=== PATIENT | male | born 1970 | race Caucasian/White ===

== ENCOUNTER 2020-04-07 11:26 | Outpatient (CLI) | payer OTHER ==
[2020-04-07] MEDS ORDERED: Morphine 2 MG/ML VIAL ONE (13:18)
--- NOTE | 2020-04-07 15:47 | NM ---
NUCLEAR MEDICINE HEPATOBILIARY SCAN: DATE: 04/07/2020 HISTORY: 49-year-old male with localized upper abdominal pain. Unable to contact referring provider despite several attempts. COMPARISON: There are no prior imaging studies of any modality of any body part available for review on synapse. TECHNIQUE: Technetium 99m-mebrofenin dose: 5.1 mCi. Morphine sulfate IV dose: 2 mg. Tc 99- mebrofenin injected IV. Dynamic anterior scintigraphy of abdomen for one hour. Morphine IV pus h injected. Additional dynamic anterior scintigraphy of abdomen. FINDINGS: There is uptake and washout of activity at the liver. The common hepatic duct and common bile duct ar e seen rapidly. Bowel activity is visualized by 240 seconds. The gallbladder does not fill with mebrofenin and. After morphine injection, it still does not fill. This was an outpatient. The nuclear reactor operator stated that the patient was not acutely ill . He was sent home, with instructions to contact his provider as soon as possible. IMPRESSION: Nonvisualization of gallbladder. This can be seen with acute cholecystitis, but patient reportedly wa s not in acute distress. Other possibility is status post cholecystectomy and less likely chronic cholecystitis. Recommend clinical correlation, and if necessary, gallbladder ultrasound.
== END 2020-04-07 11:27 | disposition home or self-care (01) ==
LOC: NM 11:26
PROVIDERS: ATTEND Surgery
DX: R10.11 Right upper quadrant pain (principal)
CPT/HCPCS: 78227; A9537; J2270